=== PATIENT | female | born 1995 | race Two or more races ===

== ENCOUNTER 2023-12-30 18:22 | Emergency (ER) | payer MEDICAID, SELFPAY ==
[2023-12-30 18:23] VITALS: BP 166/97; PULSE 109; RESP 19; TEMP 36.3; O2SAT 99; BMI 36.3
[2023-12-30 18:36] VITALS: PULSE 107; RESP 18; O2SAT 99; BMI 36.3
--- NOTE | 2023-12-30 18:36 | PD.EDANKLE ---
Lower Extremity Injury RME/HPI General Chief Complaint: Ankle/Foot Injury Stated Complaint: RT ANKLE PAIN Time Seen by Provider: 12/30/23 18:35 Arrival date/time: 12/30/23 18:22 RME / HPI RME / HPI Narrative: 28-year-old female patient was brought in by EMS for evaluation regarding right ankle injury. Patient went hiking and accidentally twisted her right ankle resulting to pain, swelling, tenderness, described as sharp pain severity moderate. Patient is having difficulty ambulating due to pain. Denies any other injury no medications taken prior to arrival. Related Data Previous Rx's ?Medication ?Instructions ?Recorded acetaminophen 300 mg-codeine 30 mg 1 tab PO TID PRN pain #20 tabs 12/30/23 tablet Review of Systems Review of Systems Narrative Review of Systems: Review of system reviewed and within normal limits except mentioned in HPI ED Exam Narrative Physical exam: VITAL SIGNS: Reviewed. GENERAL APPEARANCE: Alert and interactive, follows commands, no acute distress, HEAD AND FACE: Non-traumatic. ENT: PERRL, pink conjunctivitis, eyelid no trauma, Mucous membrane moist. NECK: Supple, nontender, no nuchal rigidity. CHEST: No tenderness, no crepitus, no paradoxical movement, no retractions. LUNGS: Clear, well ventilated, symmetric, no rales, no wheezing, no ronchi, no stridor, good breath sounds bilaterally. HEART: Regular rate, regular rhythm, no murmur, no gallops. ABDOMEN: Soft, positive bowel sounds, nondistended, no guarding, nontender, no rebound, no masses, RECTAL: Deferred. GENITAL: Deferred. NEUROLOGICAL: Gross motor function intact sensory function intact, Appropriate for age. MUSCULOSKELETAL: low back nontender, full range of motion. EXTREMITIES: Right ankle tenderness, swelling, deformity, with limitation range of motion. Distal neurovascular status intact right lower extremity SKIN: Color pink, dry, no rash, no lacerations, no abrasions, no contusions. LYMPHATICS: Deferred. Course Quality Measures none Orders Category Date Time Status Crutches .NOW Care 12/30/23 19:39 Active XR ankle RT 2V Stat Exams 12/30/23 19:56 Taken XR ankle comp RT min 3V Stat Exams 12/30/23 18:37 Completed Ketorolac Inj [Toradol Inj] Med 12/30/23 19:53 Discontinued 30 mg IM X1 ONE Ketorolac Inj [Toradol Inj] Med 12/30/23 19:53 Discontinued 30 mg IM X1 ONE Vital Signs Vital signs: Vital Signs Temperature 97.4 F 12/30/23 18:23 Pulse Rate 109 H 12/30/23 18:23 Respiratory Rate 19 12/30/23 18:23 Blood Pressure 166/97 H 12/30/23 18:23 Pulse Oximetry (%) 99 12/30/23 18:23 Oxygen Delivery Method Room Air 12/30/23 18:23 Extremity Injury, Lower MDM Narrative MDM Narrative:: 28-year-old female patient was brought in by EMS for evaluation regarding right ankle injury. Patient went hiking and accidentally twisted her right ankle resulting to pain, swelling, tenderness, described as sharp pain severity moderate. Patient is having difficulty ambulating due to pain. Denies any other injury no medications taken prior to arrival. X-ray of the right ankle showed displaced bimalleolar fracture of the ankle. I applied cardiac splint, with good padding, and reduction. Repeat x-ray showed significant improvement of the displacement. I contacted Dr. Tijerina orthopedic surgeon on-call, and patient will follow-up in the clinic. Patient is stable for discharge. Distal neurovascular status intact post splinting. Patient data External records reviewed:: None Clinical information provided by:: patient Social determinants that could affect healthcare access:: none Patient has the following chronic illnesses:: None How is presenting disease/condition affected by chronic disease/condition?: no chronic disease Evaluation data The following diagnostics were reviewed and interpreted by me:: radiology exam(s) Lab and/or radiology exams considered but not ordered:: None Interpretation Summary: X-ray of the right ankle showed displaced bimalleolar fracture. Postreduction x-ray showed significant improvement of displacement Medications / Prescriptions Medications or Prescriptions considered but not ordered:: None Medication administrations:: Medication Administration History Discontinued Medications Ketorolac Tromethamine (Ketorolac Inj 60 Mg/2 Ml Vial) 30 mg IM X1 ONE Stop: 12/30/23 19:54 Ketorolac Tromethamine (Ketorolac Inj 60 Mg/2 Ml Vial) 30 mg IM X1 ONE Stop: 12/30/23 19:54 Last Admin: 12/30/23 20:19 Dose: Not Given Documented By: EE Non-Admin Reason: Discontinued Toradol IM Consultations Consultation(s) initiated? (list below): Yes Consultation #1 (Physician, Specialty, Details): Consulted Dr. Tijerina, and patient is okay for follow-up in the clinic. Diagnosis Extremity Injury, Lower Differential Diagnosis: ankle sprain and strain and ankle fracture Most likely diagnosis given after review of the tests above:: Bimalleolar fracture right Admission Indicated Admission indicated?: not indicated Explain why admission is indicated or not indicated:: Stable Admission Request Was there a request for admission?: No Disposition Plan Disposition Plan: Discharge Discharge Attestation Discharge Attestation: The patient was given an opportunity to ask questions and understood the discharge instructions. Discharge instructions specifically effects, indications for sooner follow up or return to the emergency department, and the expected course of current diagnosis. Patient condition: Stable Discharge Plan Plan Patient Disposition: HOME (Self Care) Disposition Comment: stable Prescriptions/Referrals Prescriptions/Med Rec: New acetaminophen-codeine 300-30 mg tablet 1 tab PO TID PRN (Reason: pain) Qty: 20 0RF Referrals: No Primary/Family,Physician [Primary Care Provider] - In 1 week Ed Tijerina MD [Physician] - In 1 week Problem List Clinical Impression: Bimalleolar fracture of right ankle Patient/Caregiver Discharge Instructions Discharge Activity: activity as tolerated Education Materials: ED Ankle Fracture Additional Instructions: Thank you for the opportunity for serving you today. You are stable for discharged . You are advised to: Follow-up with Dr. Tijerina, orthopedic surgeon, please call ahead for appointment next week Return to ED for worsening of symptoms Increase oral fluids Take medication as prescribed Elevate leg review of system reviewed and within normal limits except mentioned in HPI. Print Language: Tam[employer]ight Stand Alone Forms: Gloria Award Info., Patient Portal Info Letter PA/SARAH Supervising Physician RODRIGO/SARAH Supervising Physician: MD Annmarie
--- NOTE | 2023-12-30 18:37 | XR_ITS ---
EXAMINATION: Ankle, right 3 views . Technique: Ankle AP, oblique, lateral 3 views Date and time of exam: December 30, 2023 1846 hrs. Indications: Injury to the ankle today, ankle pain. Findings: Ankle dislocation, dislocation of the distal articulating surface of the tibia medially relative to the dome the talus Displaced medial malleolar and and fibular shaft fractures Displaced posterior malleolar fracture fragment Impression: Trimalleolar fractures with ankle dislocation
--- NOTE | 2023-12-30 19:56 | XR_ITS ---
Examination: Right ankle 2 views Technique one AP lateral right ankle 2 views Exam date and time: December 29, 20242001 hrs. Comparison December 30, 2023 1848 hrs. Indications: Trimalleolar ankle fracture dislocation post reduction. Findings: Improved alignment distal tibia relative to the dome the talus Improved alignment fibular fracture Displaced medial malleolar fracture remains Impression: Significant improvement in alignment ankle fractures and dislocation
[2023-12-30] MEDS: KETOROLAC INJ 60 MG/2 ML VIAL 30 MG IM (20:23)
== END 2023-12-30 20:52 | disposition home or self-care (01) ==
PROVIDERS: Emergency Provider Emergency Medicine
DX: S82.841A Displaced bimalleolar fracture of right lower leg, initial encounter for closed fracture (principal); X50.1XXA Overexertion from prolonged static or awkward postures, initial encounter; Y93.01 Activity, walking, marching and hiking
CPT/HCPCS: 27810; 73600; 73610; 96372; 99283; J1885